=== PATIENT | male | born 1950 ===

== ENCOUNTER 2017-03-22 16:28 | Inpatient (IN) | payer MEDICARE, OTHER ==
[2017-03-22 16:32] VITALS: BMI 29.5
--- NOTE | 2017-03-22 17:13 | ED PDOC ---
Arrival/HPI - General Historian: Patient - History of Present Illness Time/Duration: Other (8 days) Symptom Course: Intermittent Context: Home <Luis Morgan - Last Filed: 03/22/17 19:00> <Srinivas Dhaliwal - Last Filed: 03/22/17 20:08> - General Chief Complaint: Dizziness/Lightheaded Time Seen by Provider: 03/22/17 16:32 - History of Present Illness Narrative History of Present Illness (Text): 03/22/17 17:00 This 66 yo male with pmh SC, s/p CABG, presents to this ED c/o intermittent dizziness, blurred vision, nausea x 8 days. Patient stated he feels he is going to "pass out". Patient admits urinary frequency. Patient denies sob, cp , abdominal pain, hematuria, rectal bleeding, recent travel, leg swelling, calf pain, or abnormal gait. (Luis Morgan) Past Medical History - Provider Review Nursing Documentation Reviewed: Yes - Infectious Disease Hx of Infectious Diseases: None - Tetanus Immunization Tetanus Immunization: Unknown - Cardiac Hx Cardiac Disorders: Yes Hx SC: Yes Hx Hypertension: Yes Other/Comment: CABG - Pulmonary Hx Respiratory Disorders: No - Neurological Hx Neurological Disorder: No - HEENT Hx HEENT Disorder: No - Renal Hx Renal Disorder: No - Endocrine/Metabolic Hx Endocrine Disorders: No - Hematological/Oncological Hx Blood Transfusions: No Hx Blood Transfusion Reaction: No - Integumentary Hx Dermatological Disorder: No - Musculoskeletal/Rheumatological Hx Musculoskeletal Disorders: No Hx Falls: No - Gastrointestinal Hx Gastrointestinal Disorders: No - Genitourinary/Gynecological Hx Genitourinary Disorders: No - Psychiatric Hx Psychophysiologic Disorder: No Hx Depression: No Hx Emotional Abuse: No Hx Physical Abuse: No Hx Substance Use: No - Surgical History Hx Cardiac Catheterization: Yes Hx Open Heart Surgery: Yes - Anesthesia Hx Anesthesia: Yes Hx Anesthesia Reactions: No Hx Malignant Hyperthermia: No - Suicidal Assessment Feels Threatened In Home Enviroment: No <Luis Morgan - Last Filed: 03/22/17 19:00> Family/Social History - Physician Review Nursing Documentation Reviewed: Yes Family/Social History: Other (non-contributory) Smoking Status: Current Some Days Smoker Hx Alcohol Use: No Hx Substance Use: No <Luis Morgan - Last Filed: 03/22/17 19:00> Allergies/Home Meds <Luis Morgan - Last Filed: 03/22/17 19:00> <Srinivas Dhaliwal - Last Filed: 03/22/17 20:08> Allergies/Adverse Reactions: Allergies No Known Allergies Allergy (Verified 03/22/17 16:32) Home Medications: Home Meds Medication Instructions Recorded Confirmed Metoprolol Succinate 25 mg PO BID 10/23/12 03/22/17 Lovastatin 40 mg PO DAILY 11/30/13 03/22/17 Aspirin [Adult Low Dose Aspirin EC] 1 tab PO DAILY 03/22/17 03/22/17 Nitroglycerin [Nitrostat SL Tab] 1 tab PO Q15MIN PRN 03/22/17 03/22/17 Sevelamer [Renagel] 0 mg PO DAILY 03/22/17 03/22/17 Review of Systems - Review of Systems Constitutional: Normal. absent: Fatigue, Weight Change, Fevers Eyes: Other (blurred vision) ENT: Normal. absent: Sore Throat, Rhinorrhea Respiratory: Normal. absent: SOB, Cough Cardiovascular: Syncope. absent: Chest Pain, Palpitations, Edema, Calf Pain, BRYAN, Orthopnea Gastrointestinal: Nausea. absent: Abdominal Pain, Constipation, Diarrhea, Vomiting Genitourinary Male: Frequency. absent: Dysuria, Hematuria Musculoskeletal: Normal. absent: Back Pain, Neck Pain Skin: Normal. absent: Rash Neurological: Dizziness. absent: Headache, Focal Weakness, Gait Changes, Speech Changes, Facial Droop, Disequilibrium, Seizure Endocrine: Normal Hemo/Lymphatic: Normal Psychiatric: Normal <Luis Morgan P - Last Filed: 03/22/17 19:00> Physical Exam Temperature: Afebrile Blood Pressure: Hypertensive Pulse: Bradycardic Respiratory Rate: Normal Appearance: Positive for: Well-Appearing, Non-Toxic, Comfortable Pain Distress: None Mental Status: Positive for: Alert and Oriented X 3 - Systems Exam Head: Present: Atraumatic, Normocephalic Pupils: Present: PERRL Extroacular Muscles: Present: EOMI Conjunctiva: Present: Normal Mouth: Present: Moist Mucous Membranes Neck: Present: Normal Range of Motion Respiratory/Chest: Present: Good Air Exchange, Decreased Breath Sounds, Rhonchi (mild LLL rhonchi). No: Respiratory Distress, Accessory Muscle Use, Wheezes, Rales, Retracting, Tachypneic, Tender to Palpation Cardiovascular: Present: Regular Rate and Rhythm, Normal S1, S2. No: Murmurs Abdomen: Present: Normal Bowel Sounds. No: Tenderness, Distention, Peritoneal Signs Back: Present: Normal Inspection. No: CVA Tenderness Upper Extremity: Present: Normal Inspection, Normal ROM, NORMAL PULSES, Neurovascularly Intact, Capillary Refill < 2s. No: Cyanosis, Edema Lower Extremity: Present: Normal Inspection, NORMAL PULSES, Normal ROM, Neurovascularly Intact, Capillary Refill < 2 s. No: Edema, CALF TENDERNESS, Vonda's Sign, Tenderness, Swelling, Erythema, Temperature Abnormalties Neurological: Present: GCS=15, CN II-XII Intact, Speech Normal, Motor Func Grossly Intact, Normal Sensory Function, Normal Cerebellar Funct, Gait Normal, Memory Normal Skin: Present: Warm, Dry, Normal Color. No: Rashes Psychiatric: Present: Alert, Oriented x 3, Normal Insight, Normal Concentration <Luis Morgan P - Last Filed: 03/22/17 19:00> Medical Decision Making Re-evaluation Time: 19:01 Reassessment Condition: Re-examined, Improving,but remains with symptoms - Lab Interpretations I have reviewed the lab results: Yes Interpretation: Abnormal lab values (elevated BNP) - EKG Interpretation Interpreted by ED Physician: Yes (Sinus Bradicardia at 51bpm. Normal interval) Type: 12 lead EKG Comparison: No previous EKG avail. <Luis Morgan - Last Filed: 03/22/17 19:00> <Srinivas Dhaliwal - Last Filed: 03/22/17 20:08> ED Course and Treatment: 03/22/17 19:[address] Vandana Vasquez regarding patient c/o near syncope x 8 days, intermittent. He agrees with plan for admission, to order consult for Dr. Nix, and Dr. Connolly (Luis Morgan) - Lab Interpretations Lab Results: 03/22/17 17:20 03/22/17 17:20 Lab Results 03/22/17 19:27: Urine Color Yellow, Urine Appearance Clear, Urine pH 6.0, Ur Specific [place] 1.015, Urine Protein Negative, Urine Glucose (UA) Negative, Urine Ketones Negative, Urine Blood Negative, Urine Nitrate Negative, Urine Bilirubin Negative, Urine Urobilinogen 0.2, Ur Leukocyte Esterase Negative 03/22/17 17:20: Sodium 140, Chloride 100, Potassium 4.6, Carbon Dioxide 28, Anion Gap 17, BUN 19, Creatinine 1.0, Est GFR ( Amer) > 60, Est GFR (Non- Af Amer) > 60, Random Glucose 98, Calcium 9.8, Total Bilirubin 0.4, AST 45, ALT 52, Alkaline Phosphatase 77, Lactate Dehydrogenase 499, Total Creatine Kinase 268 H, CK-MB (CK-2) 2.8, CK-MB (CK-2) % Cancelled, Troponin I < 0.01, NT-Pro-B Natriuret Pep 759 H, Total Protein 7.5, Albumin 4.5, Globulin 3.0, Albumin/ Globulin Ratio 1.5 03/22/17 17:20: pO2 36, VBG pH 7.35, VBG pCO2 54.0, VBG HCO3 29.8 H, VBG Total CO2 31.5 H, VBG O2 Sat (Calc) 74.1 H, VBG Base Excess 2.9 H, VBG Potassium 4.6, Sodium 137.0, Chloride 102.0, Glucose 102, Lactate 1.0, FiO2 21.0, Venous Blood Potassium 4.6 03/22/17 17:20: PT 11.4, INR 1.06, APTT 28.4 03/22/17 17:20: WBC 7.4, RBC 4.23, Hgb 12.9 L, Hct 37.8 L, MCV 89.4, MCH 30.5, MCHC 34.1, RDW 14.5, Plt Count 272, MPV 9.2, Gran % 53.9, Lymph % (Auto) 32.5, [place] % (Auto) 9.7 H, Eos % (Auto) 3.5, Baso % (Auto) 0.4, Gran # 3.96, Lymph # 2.4, [place] # 0.7 H, Eos # 0.3, Baso # 0.03 - RAD Interpretation Narrative RAD Interpretations (Text): 03/22/17 18:48 Accession No. : [id number] Patient Name / ID : PORTER CONNOR / [id number] Exam Date : 03/22/2017 17:25:04 ( Approved ) Study Comment : Sex / Age : M / 66Y Creator : Mireya Oliveira MD Dictator : Distribution Engineer : Bead Wrapper : Mireya Oliveira MD Approver2 : Report Date : 03/22/2017 17:43:38 My Comment : PROCEDURE: CT HEAD WITHOUT CONTRAST. HISTORY: dizziness COMPARISON: None available. TECHNIQUE: Axial computed tomography images were obtained through the head/brain without intravenous contrast. Radiation dose: Total exam DLP = 725.84 mGy-cm. This CT exam was performed using one or more of the following dose reduction techniques: Automated exposure control, adjustment of the mA and/or kV according to patient size, and/or use of iterative reconstruction technique. FINDINGS: HEMORRHAGE: No intracranial hemorrhage. BRAIN: No mass effect or edema. Intracranial atherosclerotic calcifications. No atrophy or chronic microvascular ischemic changes.Please note that MRI with diffusion imaging is more sensitive in the detection of acute ischemic event. VENTRICLES: No hydrocephalus. CALVARIUM: Unremarkable. PARANASAL SINUSES: Unremarkable as visualized. No significant inflammatory changes. MASTOID AIR CELLS: Unremarkable as visualized. No inflammatory changes. OTHER FINDINGS: None. IMPRESSION: No acute intracranial pathology identified. 03/22/17 18:48 CXR: NAD (Luis Morgan) Radiology Orders: 03/22/17 17:06 CHEST PORTABLE [RAD] Stat 03/22/17 17:16 HEAD W/O CONTRAST [CT] Stat 03/22/17 19:01 BRAIN WITHOUT CONTRAST [MRI] Urgent 03/22/17 19:03 CAROTID & VERTEBRAL DUPLEX [US] Urgent - Medication Orders Current Medication Orders: Aspirin (Ecotrin) 81 mg PO DAILY MIHIR Atorvastatin Calcium (Lipitor) 40 mg PO DIN MIHIR Furosemide (Lasix) 20 mg IVP DAILY MIHIR Sodium Chloride (Sodium Chloride 0.45%) 1,000 mls @ 30 mls/hr IV .Q24H MIHIR Metoprolol Succinate (Toprol Xl) 25 mg PO BID MIHIR Sevelamer HCl (Renagel) 400 mg PO DAILY MIHIR - PA / RESEARCH PHLEBOTOMIST / Resident Statement MD/DO has reviewed & agrees with the documentation as recorded. <Srinivas Dhaliwal - Last Filed: 03/22/17 20:08> Disposition/Present on Arrival - Present on Arrival Any Indicators Present on Arrival: No History of DVT/PE: No History of Uncontrolled Diabetes: No Urinary Catheter: No History of Decub. Ulcer: No History Surgical Site Infection Following: None - Disposition Have Diagnosis and Disposition been Completed?: Yes Disposition Time: 19:02 Patient Plan: Admission, Telemetry <Luis Morgan - Last Filed: 03/22/17 19:00> <Srinivas Dhaliwal - Last Filed: 03/22/17 20:08> - Disposition Diagnosis: Near syncope, Dizziness, Elevated brain natriuretic peptide (BNP) level Disposition: HOSPITALIZED Condition: STABLE Forms: [employer] Search ([place])
[2017-03-22 17:43] LABS: BASO # 0.03 K/mm3 (0.0-2.0); BASO % 0.4 % (0.0-3.0); EOS # 0.3 (0.0-0.7); EOS % 3.5 % (1.5-5.0); GRAN # 3.96 (1.4-6.5); GRAN % 53.9 % (50.0-68.0); HEMATOCRIT 37.8 % (42.0-52.0); LYMPH # 2.4 (1.2-3.4); LYMPH % 32.5 % (22.0-35.0); MEAN CELL VOLUME 89.4 fl (80.0-105.0); MEAN CORPUSCULAR HEMOGLOBIN 30.5 pg (25.0-35.0); MEAN CORPUSCULAR HGB CONC 34.1 g/dl (31.0-37.0); MEAN PLATELET VOLUME 9.2 fl (7.0-11.0); MONO # 0.7 (0.1-0.6); MONO % 9.7 % (1.0-6.0); RED CELL DISTRIBUTION WIDTH 14.5 % (11.5-14.5); WHITE BLOOD COUNT 7.4 10^3/ul (4.5-11.0)
--- NOTE | 2017-03-22 17:45 | CT ---
PROCEDURE: CT HEAD WITHOUT CONTRAST. HISTORY: dizziness COMPARISON: None available. TECHNIQUE: Axial computed tomography images were obtained through the head/brain without intravenous contrast. Radiation dose: Total exam DLP = 725.84 mGy-cm. This CT exam was performed using one or more of the following dose reduction techniques: Automated exposure control, adjustment of the mA and/or kV according to patient size, and/or use of iterative reconstruction technique. FINDINGS: HEMORRHAGE: No intracranial hemorrhage. BRAIN: No mass effect or edema. Intracranial atherosclerotic calcifications. No atrophy or chronic microvascular ischemic changes.Please note that MRI with diffusion imaging is more sensitive in the detection of acute ischemic event. VENTRICLES: No hydrocephalus. CALVARIUM: Unremarkable. PARANASAL SINUSES: Unremarkable as visualized. No significant inflammatory changes. MASTOID AIR CELLS: Unremarkable as visualized. No inflammatory changes. OTHER FINDINGS: None. IMPRESSION: No acute intracranial pathology identified.
[2017-03-22 17:54] LABS: INR 1.06 (0.93-1.08); PARTIAL THROMBOPLASTIN TIME 28.4 Seconds (23.7-30.8)
[2017-03-22 17:58] LABS: VENOUS BLOOD GAS BASE EXCESS 2.9 mmol/L (0.0-2.0); VENOUS BLOOD PH 7.35 (7.32-7.43)
[2017-03-22 18:05] LABS: ALB/GLOB RATIO 1.5 (1.1-1.8); ALKALINE PHOSPHATASE 77 U/L (38-133); ALT/SGPT 52 U/L (7-56); AST/SGOT 45 U/L (15-59); BILIRUBIN,TOTAL 0.4 mg/dL (0.2-1.3); BLOOD UREA NITROGEN 19 mg/dL (7-21); CALCIUM 9.8 mg/dL (8.4-10.5); CARBON DIOXIDE 28 mmol/L (21-33); CHLORIDE 100 mmol/L (98-107); GFR AFRICAN-AMERICAN > 60; GLUCOSE,RANDOM 98 mg/dL (70-110); POTASSIUM 4.6 mmol/L (3.6-5.0); SODIUM 140 mmol/L (132-148); TOTAL PROTEIN 7.5 g/dL (5.8-8.3)
[2017-03-22 18:20] LABS: TROPONIN I < 0.01 ng/mL
[2017-03-22 19:38] LABS: URINE BILIRUBIN NEGATIVE (NEGATIVE); URINE BLOOD NEGATIVE (NEGATIVE); URINE GLUCOSE (UA) NEGATIVE (NEGATIVE); URINE KETONE NEGATIVE (NEGATIVE); URINE LEUKOCYTE ESTERASE NEGATIVE Leu/uL (NEGATIVE); URINE PROTEIN NEGATIVE mg/dL (<30 mg/dL); URINE UROBILINOGEN 0.2 E.U./dL (<1 E.U./dL)
[2017-03-22 19:39] LABS: URINE APPEARANCE CLEAR (CLEAR); URINE COLOR YELLOW (YELLOW)
--- NOTE | 2017-03-22 20:54 | MRI ---
EXAM: MR Head Without Intravenous Contrast EXAM DATE/TIME: 03/22/2017 7:01 PM CLINICAL HISTORY: The patient age is 66 years old and is male; Signs and symptoms; Dizziness; Patient HX: Dizziness. Limited study. Patient wants out of the magnet. Nurse francois was informed. Moses gupta Additional info: Dizzy Facility exam id and description: Mri br s brain without contrast TECHNIQUE: Magnetic resonance images of the head/brain without intravenous contrast in multiple planes. COMPARISON: CT - HEAD W/O CONTRAST 03/22/2017 5:25:04 PM FINDINGS: Limitations: This study is limited by the absence of a sagittal T1-weighted sequence. Brain: There is no restricted diffusion within the brain to suggest acute ischemic change. There are scattered foci of high FLAIR signal intensity within the cerebral white matter. There is no mass effect or restricted diffusion associated with these foci. In a patient this age, this likely represents chronic small vessel ischemic disease. A few tiny T2 hyperintense chronic lacunar infarcts are visualized within the cerebellar lobes. There is mild increased T2 signal intensity within the jean, which is nonspecific, but suggestive of chronic small vessel ischemic disease. There is mild prominence of the ventricles and sulci, compatible with atrophy. No cerebral edema. Ventricles: See above. Bones/joints: No acute abnormality. Sinuses: There is mild mucosal thickening of a left anterior ethmoid air cell. Mild mucosal thickening is visualized of the left maxillary sinus. No acute sinusitis. Mastoid air cells: No mastoid effusion. Orbits: No acute abnormality, as visualized. IMPRESSION: 1. There is no restricted diffusion within the brain to suggest acute ischemic change. 2. There are scattered foci of high FLAIR signal intensity within the cerebral white matter. In a patient this age, this likely represents chronic small vessel ischemic disease. 3. A few tiny chronic lacunar infarcts are visualized within the cerebellar lobes. There is mild increased T2 signal intensity within the jean, which is nonspecific, but suggestive of chronic small vessel ischemic disease. 4. Mild atrophy. 5. Paranasal sinus disease is noted above.
[2017-03-22] MEDS: Sodium Chloride 0.45% 1,000 ML IV SCH (21:50)
--- NOTE | 2017-03-23 04:57 | CP.PCM.PN ---
Subjective - Date & Time of Evaluation Date of Evaluation: 03/23/17 Time of Evaluation: 04:55 - Subjective Subjective: Patient was seen at bedside. He came i with complaint of dizziness. Nurse calls because his heart rate was in the 50's and it dropped down to 50's . Is asymptomatic. Has no complaints now. Medical record was reviewed. This 66 year old male was admitted with dizziness ,lightheadedness, intermittent blurry vision, nausea, Has PMH of UT, HTN, chronic bypass graft, heart surgery, cardiac catheterization. Objective - Vital Signs/Intake and Output Vital Signs (last 24 hours): Temp Pulse Resp BP Pulse Ox 98.7 F 61 18 127/74 98 03/22/17 22:44 03/22/17 22:44 03/22/17 22:44 03/22/17 22:44 03/22/17 21:14 - Medications Medications: Current Medications Aspirin (Ecotrin) 81 mg PO DAILY MIHIR Atorvastatin Calcium (Lipitor) 40 mg PO DIN MIHIR Furosemide (Lasix) 20 mg IVP DAILY [facility] Sodium Chloride (Sodium Chloride 0.45%) 1,000 mls @ 30 mls/hr IV .Q24H MIHIR Last Admin: 03/22/17 21:50 Dose: 30 mls/hr Metoprolol Succinate (Toprol Xl) 25 mg PO BID MIHIR Sevelamer HCl (Renagel) 400 mg PO DAILY [facility] - Labs Labs: PT 11.4 Seconds (9.9-11.8) 03/22/17 17:20 INR 1.06 (0.93-1.08) 03/22/17 17:20 APTT 28.4 Seconds (23.7-30.8) 03/22/17 17:20 - Constitutional Appears: Well, No Acute Distress - Head Exam Head Exam: ATRAUMATIC, NORMAL INSPECTION, NORMOCEPHALIC - Eye Exam Eye Exam: Normal appearance - ENT Exam ENT Exam: Normal External Ear Exam - Neck Exam Neck Exam: Normal Inspection - Respiratory Exam Respiratory Exam: NORMAL BREATHING PATTERN - Cardiovascular Exam Cardiovascular Exam: Bradycardia - GI/Abdominal Exam GI & Abdominal Exam: absent: Distended - Rectal Exam Rectal Exam: Deferred - Exam Additional comments: Deferred. - Extremities Exam Extremities Exam: Normal Inspection - Back Exam Back Exam: NORMAL INSPECTION - Neurological Exam Neurological Exam: Alert, Oriented x3 - Psychiatric Exam Psychiatric exam: Normal Affect, Normal Mood - Skin Skin Exam: Normal Color Assessment and Plan - Assessment and Plan (Free Text) Assessment: Sinus bradycardia. History UT. CAD. HTN. Smoker. Plan: Observation. Continue present management.
[2017-03-23 06:41] LABS: HEMATOCRIT 37.9 % (42.0-52.0); MEAN CELL VOLUME 89.6 fl (80.0-105.0); MEAN CORPUSCULAR HEMOGLOBIN 29.8 pg (25.0-35.0); MEAN CORPUSCULAR HGB CONC 33.2 g/dl (31.0-37.0); RED CELL DISTRIBUTION WIDTH 14.9 % (11.5-14.5); WHITE BLOOD COUNT 6.1 10^3/ul (4.5-11.0)
[2017-03-23 07:02] LABS: ALB/GLOB RATIO 1.4 (1.1-1.8); ALKALINE PHOSPHATASE 68 U/L (38-133); ALT/SGPT 45 U/L (7-56); AST/SGOT 37 U/L (15-59); BILIRUBIN,TOTAL 0.4 mg/dL (0.2-1.3); BLOOD UREA NITROGEN 16 mg/dL (7-21); CALCIUM 9.4 mg/dL (8.4-10.5); CARBON DIOXIDE 30 mmol/L (21-33); CHLORIDE 101 mmol/L (98-107); GFR AFRICAN-AMERICAN > 60; GLUCOSE,RANDOM 101 mg/dL (70-110); POTASSIUM 4.3 mmol/L (3.6-5.0); SODIUM 138 mmol/L (132-148); TOTAL PROTEIN 6.7 g/dL (5.8-8.3)
--- NOTE | 2017-03-23 08:34 | RAD ---
HISTORY: dizziness COMPARISON: 11/30/2013 FINDINGS: LUNGS: No active pulmonary disease. PLEURA: No significant pleural effusion identified, no pneumothorax apparent. CARDIOVASCULAR: Status post CABG. OSSEOUS STRUCTURES: No significant abnormalities. VISUALIZED UPPER ABDOMEN: Normal. OTHER FINDINGS: None. IMPRESSION: No active disease.
--- NOTE | 2017-03-23 09:28 | US ---
PROCEDURE: Bilateral carotid artery duplex ultrasound HISTORY: Carotid stenosis dizziness. PHYSICIAN(S): Martín Coleman MD. TECHNIQUE: Duplex sonography and color-flow Doppler were used to evaluate the carotid bifurcations and limited segments of the vertebral arteries bilaterally. FINDINGS: There is mild smooth heterogeneous plaque noted at the carotid bifurcations bilaterally. The peak systolic velocity in the proximal right internal carotid artery is 74 cm/sec. This corresponds to a 20 to 39% proximal right ICA stenosis. Normal systolic velocities are noted in the proximal right external carotid artery. There is antegrade flow in the right vertebral artery. The peak systolic velocity in the proximal left internal carotid artery is 63 cm/sec. This corresponds to a 20 to 39% proximal left ICA stenosis. Normal systolic velocities are noted in the proximal left external carotid artery. There is antegrade flow in the left vertebral artery. IMPRESSION: 1. Bilateral 20-39% proximal ICA stenoses. 2. Antegrade flow in both vertebral arteries.
[2017-03-23] MEDS: Metoprolol Succinate 25 mg XL Tab PO SCH ×2 (09:41→17:18)
--- NOTE | 2017-03-23 09:48 | CARD ---
APPROVED REPORT EKG Measurement Heart [id number] GA [id number] <Conclusion> Sinus bradycardia Otherwise normal ECG
--- NOTE | 2017-03-23 11:09 | HP ---
HISTORY OF PRESENT ILLNESS: I was called down to the emergency room to admit Martín Valero. He is a 66-year-old man who presents with dizziness, lightheadedness, it has been intermittent blurred vision, nausea for 8 days, it got worse that he almost passed out, but he did not. He has had urinary frequency. No chest pain, no abdominal pain, no bloody urine or rectal bleeding. It has been going on for 8 days, intermittent, got worse today almost passed out. PAST MEDICAL HISTORY: He has a history of myocardial infarction, hypertension, chronic bypass graft, he had open heart surgery, cardiac catheterization. SOCIAL HISTORY: He does smoke cigarettes. He used to do drugs, no more. ALLERGIES: NO KNOWN DRUG ALLERGIES. MEDICATIONS: He is on metoprolol, lovastatin for high cholesterol, aspirin, nitroglycerin, and Renagel. REVIEW OF SYSTEMS: No acute vision changes or hearing changes. No fatigue. There was blurred vision earlier. No sore throat, no rhinorrhea, no shortness of breath, no cough. There was syncope, no chest pain or palpitations. No edema, no calf pain. No dyspnea on exertion or orthopnea. No abdominal pain or constipation, diarrhea or vomiting. There was increase in frequency of urination, no problems urinating. No back pain. No skin rashes or ulcers. There is dizziness, almost passing out. No headache or focal weakness, No gait changes or speech changes. No facial droop. No seizures. No sweating. No anxiety or depression. PHYSICAL EXAMINATION: VITAL SIGNS: Temperature 98.1, pulse 58, respiratory rate 18, blood pressure 160/87, and O2 sat is 95% on room air. HEENT: Head is atraumatic, normocephalic. He is well appearing nontoxic, comfortable at this time. His mouth is moist. NECK: Supple. HEART: Regular rate, S1, S2 is normal. LUNGS: Have decreased breath sounds, but clear to auscultation bilaterally. ABDOMEN: Soft, nontender, positive bowel sounds. EXTREMITIES: He had trace edema of his extremities. His GCS is 15 at this time. CENTRAL NERVOUS SYSTEM: Intact. Cranial nerves II through XII grossly intact. Speech is normal. Tongue is midline. He can moves his eyes in all directions. He could raise arms over his head. He could smile to frown. He is alert and oriented x3. He almost passed out. He had multiple tests. LABORATORY DATA: He has sodium 140, potassium 4.6, BUN 19, creatinine 1. GFR is greater than 60, sugar is 98, calcium 9.8, total bilirubin is 0.4. AST is 45, ALT is 52, alkaline phosphatase is 77, troponin is less than 0.01. BNP is 759, total protein 7.5, albumin is 4.5. INR is 1.06, white count is 7.4, hemoglobin 12.9, hematocrit 37.8, platelets 272. CAT scan of the head shows no acute intracranial pathology. He will have a consult with Cardiology and Neurology with an MRI of the brain. He have a ultrasound of the carotid. He will be on aspirin low dose, IV fluids of 30 mL an hour, Lasix 20 mg IV, lovastatin, metoprolol, Renagel. Diet. He will be on observation. Hopefully, he will do well. We will get him up tomorrow, we will see how he does overnight. He is starting to improve. He is here for near syncope. We will check his labs tomorrow. Ezra Vasquez DO
--- NOTE | 2017-03-23 14:58 | PN ---
DATE: SUBJECTIVE: I saw him resting comfortably in bed. He tells me he is feeling better than yesterday. The lightheadedness and dizziness has gone way. He is comfortable at this time. He is hungry. MEDICATIONS: He is on Ecotrin, Lasix, Lipitor, Renagel, IV fluids, and Toprol. PHYSICAL EXAMINATION: VITAL SIGNS: Are 98.7 temperature, 61 pulse, 124/74 blood pressure, 18 respiratory rate, and 90% O2 saturation on room air. HEENT: Head is atraumatic, normocephalic. Throat is moist. NECK: Supple. HEART: Regular rate. LUNGS: Decreased breath sounds, but clear to auscultation. ABDOMEN: Soft. EXTREMITIES: No edema. LABORATORY DATA: He has got a 6.1 white count,12.6 hemoglobin, 37.9 hematocrit, and 241 platelets. INR is 1.06. He has 138 sodium, potassium 4.3, BUN is 16, creatinine 0.9, GFR is greater than 60, sugar is 101, calcium is 9.4. Total bilirubin is 0.4, AST is 37, ALT is 45, alkaline phosphatase 68. Troponin is less than 0.01. Total protein is 6.7, albumin is 3.9, globulin is 2.8. Urine is negative. Toxicology was completely negative. The brain MRI showed old stuff, nothing acute. Carotid artery ultrasound is pending. ASSESSMENT AND PLAN: We are waiting for Neuro and Cardiology okay from them, I will try and discharge him and make him in observation. He is here for near syncope. Ezra Vasquez DO [id number]
--- NOTE | 2017-03-23 16:38 | CP.PCM.CON ---
<Ron Bliss - Last Filed: 03/23/17 17:44> History of Present Illness - History of Present Illness History of Present Illness: Neurology consult note for Dr. Nix Service Consulted for: syncope HPI: This is a 66 yo M with PMH of [place], CAD s/p stenting and CABG (2013) , HTN, HLD, prior alcohol and coccaine abuse, and active tobacco use who presented to [facility] overnight with initial complaint of dizziness, blurred vision, and nausea x8 days with intermittent episodes of near syncope. However, on interview today, patient described his symptoms causing presentation as shortness of breath, chest tightness, weakness, and dizziness specifically on exertion. Patient is noted in prior charting to have left AMA from [facility] after cardiac event prior to cardiac cath in 2012. He subsequently underwent cardiac cath and CABG at another facility (location and date unclear, possibly [facility]). He reports compliance with medication regimen since that time, and reports following regularly with a non-[facility] Blunger Machine Operator (Dr. Milligan). For this admission, patient reports that he gets shortness of breath and dizziness with any exertion, and frequently gets chest tightness and occasionally pain. Denies any syncope, but reports 2-3 episodes of near-syncope , all relieved with rest. Frequent nausea and sensation of needing to vomit, but no actual emesis, and is still tolerating PO intake. Also initially describes inability to move right knee, but later clarifies that he can move the leg at rest while sitting, symptom is more stiffness than paresthesis, and retains full sensation at all times. Denies fevers/chills, emesis, fevers/ chills, focal weakness, paresthesia, diarrhea/constipation, or vision changes. All remaining ROS in 12-point system review negative. Of note, in the ED and overnight, patient experienced bradycardia of 40's-50's; primarily 40's overnight. He has been in the high 50's-60s throughout today. PMH: As above PSH: CABG, Cardiac Stenting FHx: denies SHx: admits to active tobacco (down to 1/2 ppd, previously 1+ ppd > 30 yrs), admits to alcohol (previously reported alcohol abuse, reports currently drinks 1 -2 beers per day), denies illicits (previously reported to use cocaine). PMD: Dr. Singh Blunger Machine Operator: Dr. Milligan Review of Systems - Review of Systems All systems: reviewed and no additional remarkable complaints except (as per HPI ) Past Patient History - Infectious Disease Hx of Infectious Diseases: None - Tetanus Immunizations Tetanus Immunization: Unknown - Past Social History Smoking Status: Current Some Days Smoker - CARDIAC Hx Cardiac Disorders: Yes - PULMONARY Hx Respiratory Disorders: No - NEUROLOGICAL Hx Neurological Disorder: No - HEENT Hx HEENT Problems: No - RENAL Hx Chronic Kidney Disease: No - ENDOCRINE/METABOLIC Hx Endocrine Disorders: No - HEMATOLOGICAL/ONCOLOGICAL Hx Blood Transfusions: No Hx Blood Transfusion Reaction: No - INTEGUMENTARY Hx Dermatological Problems: No - MUSCULOSKELETAL/RHEUMATOLOGICAL Hx Falls: No - GASTROINTESTINAL Hx Gastrointestinal Disorders: No - GENITOURINARY/GYNECOLOGICAL Hx Genitourinary Disorders: No - PSYCHIATRIC Hx Substance Use: No - SURGICAL HISTORY Hx Cardiac Catheterization: Yes Hx Open Heart Surgery: Yes (CABG) - ANESTHESIA Hx Anesthesia: Yes Hx Anesthesia Reactions: No Hx Malignant Hyperthermia: No Meds Allergies/Adverse Reactions: Allergies Allergy/AdvReac Type Severity Reaction Status Date / Time No Known Allergies Allergy Verified 03/22/17 16:32 - Medications Medications: Current Medications Aspirin (Ecotrin) 81 mg PO DAILY [facility] Last Admin: 03/23/17 09:41 Dose: 81 mg Atorvastatin Calcium (Lipitor) 40 mg PO DIN [facility] Clopidogrel Bisulfate (Plavix) 75 mg PO DAILY [facility] Sodium Chloride (Sodium Chloride 0.45%) 1,000 mls @ 30 mls/hr IV .Q24H [facility] Last Admin: 03/22/17 21:50 Dose: 30 mls/hr Metoprolol Succinate (Toprol Xl) 25 mg PO BID [facility] Last Admin: 03/23/17 09:41 Dose: 25 mg Sevelamer HCl (Renagel) 400 mg PO DAILY [facility] Last Admin: 03/23/17 09:41 Dose: 400 mg Physical Exam - Constitutional Appears: Non-toxic, No Acute Distress - Head Exam Head Exam: ATRAUMATIC, NORMAL INSPECTION, NORMOCEPHALIC - Eye Exam Eye Exam: EOMI, Normal appearance, PERRL. absent: Conjunctival injection, Scleral icterus Pupil Exam: NORMAL ACCOMODATION, PERRL. absent: Fixed, Irregular, Unequal - ENT Exam ENT Exam: Mucous Membranes Moist. absent: Mucous Membranes Dry - Neck Exam Neck exam: Positive for: Full Rom, Normal Inspection - Respiratory Exam Respiratory Exam: Decreased Breath Sounds (mild-moderate decreased breath sounds in all kahn, but otherwise clear to auscultation), Clear to Auscultation Bilateral, Prolonged Expiratory Phase, NORMAL BREATHING PATTERN. absent: Accessory Muscle Use, Chest Wall Tenderness, Rales, Rhonchi, Wheezes - Cardiovascular Exam Cardiovascular Exam: Bradycardia, REGULAR RHYTHM, +S1, +S2. absent: Tachycardia , Irregular Rhythm, JVD, RRR, +S4 - GI/Abdominal Exam GI & Abdominal Exam: Normal Bowel Sounds, Soft. absent: Diminished Bowel Sounds , Distended, Firm, Hyperactive Bowel Sounds, Hypoactive Bowel Sounds, Rigid, Tenderness - Extremities Exam Extremities exam: Positive for: normal inspection. Negative for: calf tenderness, pedal edema, tenderness - Back Exam Back exam: absent: CVA tenderness (L), CVA tenderness (R) - Neurological Exam Neurological exam: Alert, CN II-XII Intact, Oriented x3 Additional comments: Motor and sensory grossly intact and equal in all extremities Full active and passive ROM in R knee 5/5 bilateral UE, LE, and curtain supervisor strength - Psychiatric Exam Psychiatric exam: Normal Affect, Normal Mood - Skin Skin Exam: Dry, Intact, Normal Color, Warm Results - Vital Signs Recent Vital Signs: Last Vital Signs Temp 97.8 F 03/23/17 08:24 Pulse 48 L 03/23/17 08:24 Resp 20 03/23/17 08:24 BP 124/72 03/23/17 09:41 Pulse Ox 98 03/23/17 08:24 - Labs Result Diagrams: 03/23/17 05:50 03/23/17 05:50 Labs: Laboratory Results - last 24 hr 03/22/17 03/22/17 03/23/17 19:27 21:40 05:50 WBC 6.1 RBC 4.23 Hgb 12.6 L Hct 37.9 L MCV 89.6 MCH 29.8 MCHC 33.2 RDW 14.9 H Plt Count 241 MPV 9.0 Sodium Potassium Chloride Carbon Dioxide Anion Gap BUN Creatinine Est GFR ( Amer) Est GFR (Non-Af Amer) Random Glucose Calcium Total Bilirubin AST ALT Alkaline Phosphatase Total Protein Albumin Globulin Albumin/Globulin Ratio Urine Color Yellow Urine Appearance Clear Urine pH 6.0 Ur Specific [place] 1.015 Urine Protein Negative Urine Glucose (UA) Negative Urine Ketones Negative Urine Blood Negative Urine Nitrate Negative Urine Bilirubin Negative Urine Urobilinogen 0.2 Ur Leukocyte Esterase Negative Urine Opiates Screen Negative Urine Methadone Screen Negative Ur Barbiturates Screen Negative Ur Phencyclidine Scrn Negative Ur Amphetamines Screen Negative U Benzodiazepines Scrn Negative U Oth Cocaine Metabols Negative U Cannabinoids Screen Negative 03/23/17 05:50 WBC RBC Hgb Hct MCV MCH MCHC RDW Plt Count MPV Sodium 138 Potassium 4.3 Chloride 101 Carbon Dioxide 30 Anion Gap 11 BUN 16 Creatinine 0.9 Est GFR ( Amer) > 60 Est GFR (Non-Af Amer) > 60 Random Glucose 101 Calcium 9.4 Total Bilirubin 0.4 AST 37 ALT 45 Alkaline Phosphatase 68 Total Protein 6.7 Albumin 3.9 Globulin 2.8 Albumin/Globulin Ratio 1.4 Urine Color Urine Appearance Urine pH Ur Specific [place] Urine Protein Urine Glucose (UA) Urine Ketones Urine Blood Urine Nitrate Urine Bilirubin Urine Urobilinogen Ur Leukocyte Esterase Urine Opiates Screen Urine Methadone Screen Ur Barbiturates Screen Ur Phencyclidine Scrn Ur Amphetamines Screen U Benzodiazepines Scrn U Oth Cocaine Metabols U Cannabinoids Screen Assessment & Plan - Assessment and Plan (Free Text) Assessment: This is a 66 yo M with PMH of [place], CAD s/p stenting and CABG (2013), HTN , HLD, prior alcohol and cocaine abuse, and active tobacco use with initial complaint of dizziness, blurred vision, and nausea x8 days with intermittent episodes of near syncope, but now instead reports hx of shortness of breath, chest tightness, weakness, and dizziness, specifically on exertion. Based on patient's extensive cardiac hx and symptoms specifically triggered/ exacerbated by exertion, his presentation is more likely cardiac in nature, rather than ventral/carotid in nature. Head CT and MRI brain are negative for acute pathology, and Carotid Duplex reports 20-39% stenosis bilaterally with ategrade flow in bilateral vertebral arteries. At rest, he is not dyspnic, has grossly intact motor and sensory, and equal and appropriate motor strength. Weakness and dizziness are likely 2/2 bradycardia in setting of underlying CAD and active tobacco abuse. 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 Shortness of breath and chest tightness on exertion more suggestive of anginal etiology. As per Cardiology, planning to take for Cardiac Cath tomorrow. Plan: 1) Tobacco/EtOH/Illicits avoidance 2) PT/OT 3) ASA 81mg/Plavix 75mg for stroke prevention, continue home lipitor (40mg PO daily); as per Cardio, Plavix loaded today pending cath tomorrow Patient seen, reviewed, and discussed with attending, Dr. Samuel Nix. Please reconsult if patient experiences any acute changes in condition. <Gilson Nix - Last Filed: 03/24/17 10:14> Meds - Medications Medications: Current Medications Aspirin (Ecotrin) 81 mg PO DAILY [facility] Last Admin: 03/24/17 09:21 Dose: Not Given Atorvastatin Calcium (Lipitor) 40 mg PO DIN [facility] Last Admin: 03/23/17 17:18 Dose: 40 mg Clopidogrel Bisulfate (Plavix) 75 mg PO DAILY [facility] Last Admin: 03/24/17 09:21 Dose: Not Given Sodium Chloride (Sodium Chloride 0.9%) 1,000 mls @ 100 mls/hr IV .Q10H [facility] Stop: 03/24/17 15:00 Last Admin: 03/24/17 09:18 Dose: 100 mls/hr Metoprolol Succinate (Toprol Xl) 25 mg PO BID [facility] Last Admin: 03/23/17 17:18 Dose: 25 mg Sevelamer HCl (Renagel) 400 mg PO DAILY [facility] Last Admin: 03/23/17 09:41 Dose: 400 mg Results - Vital Signs Recent Vital Signs: Last Vital Signs Temp 98.1 F 03/24/17 08:26 Pulse 59 L 03/24/17 08:26 Resp 19 03/24/17 08:26 BP 118/68 03/24/17 08:26 Pulse Ox 97 03/24/17 08:26 - Labs Result Diagrams: 03/23/17 05:50 03/23/17 05:50 Labs: Laboratory Results - last 24 hr 03/23/17 21:20 POC Glucose (mg/dL) 102 Attending/Attestation - Attestation I have personally seen and examined this patient.: Yes I have fully participated in the care of the patient.: Yes I have reviewed all pertinent clinical information: Yes
--- NOTE | 2017-03-23 16:54 | CON ---
DATE: 03/23/2017 HISTORY: The patient is a 66-year-old male, who presents with transient dizziness. His symptoms are now resolved. The patient's past medical history is notable for history of coronary bypass surgery. He was told from a catheterization done at [facility] that he has one bypass graft closed and he has a poor and he has a critical lesion in another vessel, which may require coronary bypass surgery in which the patient would be at high risk for PAST MEDICAL HISTORY: The patient's past medical history is notable for COPD with active smoking, claudication, hypertension, and hypercholesterolemia. No diabetes mellitus noted. SOCIAL HISTORY The patient still smokes. REVIEW OF SYSTEMS: A 14-point review of systems was reviewed. The patient does experience occasional chest pain and complains of right leg pain during exertion. PHYSICAL EXAMINATION: VITAL SIGNS: Blood pressure is 124/72, heart rate is in the 40s, sinus rhythm. NECK: Negative JVD. LUNGS: No rales noted. HEART: Reveal S1 and S2. EXTREMITIES: Without edema. LABORATORY DATA: EKG shows normal sinus rhythm with diffuse ST-T changes. Troponin is negative x1. The hemoglobin is 12.6. IMPRESSION 1. Transient dizziness. 2. Multivessel coronary artery disease. 3. History of coronary bypass surgery. 4. Ongoing angina. 5. Claudication. 6. History of hypertension. PLAN: I have discussed with the patient options of potential look and see whether his coronary blockages can be resolved with angioplasty instead of repeat coronary bypass surgery. Repeat coronary bypass surgery for him would be at increased risk due to his active smoking, COPD and history of previous bypass. The patient agrees. We will load with Plavix. The patient is for cardiac catheterization in the morning. Martín Connolly MD
[2017-03-23] MEDS: Sodium Chloride 0.45% 1,000 ML IV SCH (21:26)
[2017-03-24] MEDS ORDERED: Lidocaine 2% Inj (20ml) ONE (07:10)
[2017-03-24] MEDS ORDERED: Phenylephrine 10 mg/ml Inj ONE (07:28)
[2017-03-24] MEDS ORDERED: Midazolam 2 MG/2 ML VIAL ONE ×2 (07:40→07:56)
[2017-03-24] MEDS ORDERED: Iohexol 350mgl/ml 50 ML ONE (08:13)
[2017-03-24] MEDS ORDERED: Sodium Chloride 0.9% 1,000 ML IV SCH (09:00)
--- NOTE | 2017-03-24 10:51 | CARDCATH ---
PROCEDURE DATE: 03/24/2017 HISTORY: The patient is a 66-year-old male who presents with angina. The patient is status post coronary bypass surgery and has been told that he may need bypass surgery as he continues have chest pain. He continues to smoke and suffers from hypercholesterolemia. PROCEDURE: Left heart catheterization with coronary aortography and left ventriculogram with BELL angiogram, saphenous vein graft angiogram as well as PTCA and stent of the saphenous vein graft of the RCA. The right femoral artery was cannulated with a 6-Ethiopian sheath. There were no complications. The findings on catheterization revealed a left ventricle that was globally hypokinetic. Estimated ejection fraction was 35-40%. His coronary anatomy revealed left main artery that revealed diffuse atherosclerosis without critical lesions. The LAD was sub-totally occluded. The circumflex artery revealed a chronic occlusion in its proximal portion. The RCA was occluded in its proximal portion. The BELL to the LAD was found to be patent and provided good antegrade flow to the LAD. The staph vein graft to the RCA revealed 80% stenosis in its proximal portion to the RCA. There was no bypass graft to the circumflex artery noted. The patient was started on intravenous Angiomax on the fluoroscopic guide, the guiding catheter was placed in the ostium of the saphenous vein graft to the RCA. An 0.014 ATW wire was used to cross the critical lesion and saphenous vein graft. A 3.0 x 18 mm drug-eluting stent was placed and deployed at 14 atmospheres of pressure. Repeat coronary artery revealed an excellent result with no residual stenosis and HAJA III flow. Angio-Seal was used to close the femoral artery site. The patient time of tolerated the procedure well. In summary, the procedure was successful for PTCA and stent of a critically stenosed saphenous vein graft to the RCA with a drug-eluting stent. Cardiac catheterization reveals triple vessel CAD. a patent BELL to the LAD was noted. A critical lesion in the saphenous vein graft to the RCA was noted. A dilated cardiomyopathy with an EF of 35-40% was found. Given these findings, the patient will need to remain on aspirin and Plavix with Plavix for at least 1 year. I have discussed with the patient about the need to stop smoking. We will bring him back in one in 1 week for PTCA of a chronically occluded circumflex artery. Martín Connolly MD [facility] # [id number]
[2017-03-24] MEDS: Metoprolol Succinate 25 mg XL Tab PO SCH (10:58)
--- NOTE | 2017-03-24 11:26 | CARD ---
APPROVED REPORT EKG Measurement Heart [id number] <Conclusion> Marked sinus bradycardia with 1st degree AV block Cannot rule out Inferior infarct, age undetermined Abnormal ECG
--- NOTE | 2017-03-24 14:04 | PN ---
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 He had a stent placed for coronary artery disease. He will be kept overnight and if done well,we will be discharged tomorrow. MEDICATIONS: He is currently on Ecotrin, Lipitor, Plavix, Renagel, IV fluids, and metoprolol. PHYSICAL EXAMINATION VITAL SIGNS: 98.1 temp, 69 pulse, 118/68 blood pressure, 19 respiratory rate and 97% O2 sat on room air. HEENT: Head is atraumatic and normocephalic. HEART: Regular rate. LUNGS: Clear to auscultation. ABDOMEN: Soft. EXTREMITIES: No edema. LABORATORY DATA: He has a 6.1 white count, 12.6 hemoglobin, 37.9 hematocrit with a 241 platelets. He has a 138 sodium, potassium 4.3, BUN 16, creatinine 0.9, GFR is greater than 60, sugar is 102, calcium is 9.4. Total bili is 0.4, AST is 37, ALT is 45, alkaline phosphatase is 68. He has 6.7 total protein. Urine screen tox was negative. PLAN: We are discharging him tomorrow home, status post cath today. He will be eating later, he will eat 5 to 6 hours. I will follow up that. Ezra Vasquez DO
[2017-03-25 06:06] LABS: ALB/GLOB RATIO 1.4 (1.1-1.8); ALKALINE PHOSPHATASE 67 U/L (38-126); ALT/SGPT 51 U/L (7-56); AST/SGOT 36 U/L (17-59); BILIRUBIN,TOTAL 0.5 mg/dL (0.2-1.3); BLOOD UREA NITROGEN 13 mg/dL (7-21); CALCIUM 9.2 mg/dL (8.4-10.5); CARBON DIOXIDE 26 mmol/L (21-33); CHLORIDE 103 mmol/L (98-107); GFR AFRICAN-AMERICAN > 60; GLUCOSE,RANDOM 111 mg/dL (70-110); SODIUM 139 mmol/L (132-148); TOTAL PROTEIN 6.7 g/dL (5.8-8.3)
[2017-03-25 06:19] LABS: BASO # 0.02 K/mm3 (0.0-2.0); BASO % 0.3 % (0.0-3.0); EOS # 0.3 (0.0-0.7); GRAN # 3.55 (1.4-6.5); HEMATOCRIT 38.4 % (42.0-52.0); LYMPH # 2.3 (1.2-3.4); LYMPH % 34.2 % (22.0-35.0); MEAN CELL VOLUME 90.4 fl (80.0-105.0); MEAN CORPUSCULAR HEMOGLOBIN 29.9 pg (25.0-35.0); MEAN CORPUSCULAR HGB CONC 33.1 g/dl (31.0-37.0); MEAN PLATELET VOLUME 9.1 fl (7.0-11.0); MONO # 0.7 (0.1-0.6); MONO % 9.5 % (1.0-6.0); RED CELL DISTRIBUTION WIDTH 14.9 % (11.5-14.5); WHITE BLOOD COUNT 6.8 10^3/ul (4.5-11.0)
[2017-03-25 06:32] VITALS: PULSE 66; RESP 18; TEMP 98.6; O2SAT 95
[2017-03-25 11:59] VITALS: BP 137/73
--- NOTE | 2017-03-25 13:21 | PN ---
DATE: 03/25/2017 SUBJECTIVE: The patient is chest pain free, ambulating post PTCA, blood pressure is 136/70, heart rate is in the 60s. OBJECTIVE: NECK: Negative JVD. LUNGS: Without rales. HEART: S1, S2. EXTREMITIES: Without edema. LABORATORY DATA: Hemoglobin is 12.7, creatinine is 0.8. IMPRESSION: 1. Unstable angina. 2. History of coronary bypass surgery. 3. Successful PTCA and stent of saphenous vein graft lesion to the RCA. 4. COPD. 5. Hypercholesterolemia. PLAN: Given these findings, the patient is stable for discharge. I have discussed the need for Plavix as well as a cardiac risk reduction program with the patient in detail. I have discussed with him about that the need to stop smoking. We will bring the patient back in 1 week for an attempted PTCA of a chronically occluded circumflex artery. Martín Connolly MD
--- NOTE | 2017-03-26 06:28 | DS ---
He did very well last night. He is status post stent placement with Dr. Connolly. Prescriptions were given to him by Dr. Connolly. PHYSICAL EXAMINATION: VITAL SIGNS: He has a 98.6 temp, 66 pulse, 136/69 blood pressure, 18 respiratory rate and 95% sat on room air. HEENT: Head is atraumatic and normocephalic. HEART: Regular rate. LUNGS: Clear to auscultation. ABDOMEN: Soft. EXTREMITIES: No edema. MEDICATIONS: He is going home on his Ecotrin, Lipitor, Plavix and Renagel. LABORATORY DATA: He had 6.8 white count, 12.7 hemoglobin, 38.4 hematocrit with 245 platelets. He had 139 sodium, potassium of 4, BUN is 30, creatinine 0.8, GFR is greater than 60, sugar 111, calcium is 9.2. Total bili is 0.5, AST is 36, ALT is 51, alk phos 67. Total protein 6.7. He will be followed by Dr. Connolly next week, next Monday, for another catheterization. Hopefully, he will do very well this week. He will call me if any issues. The patient had severe CAD with stent placement. He was here for syncope and dizziness. Ezra Vasquez DO
== END 2017-03-25 12:15 | disposition home or self-care (01) | DRG 247 ==
LOC: ED 16:28 → ERH 18:58 → 3RNO 21:57 → 3RSO 22:04 → 2RSO 03-24 09:04
PROVIDERS: ADMIT Family Medicine; ATTEND Family Medicine
PROC: 027034Z Dilation of Coronary Artery, One Artery with Drug-eluting Intraluminal Device, Percutaneous Approach (ICD-10-PCS; principal; 2017-03-24)
PROC: 4A023N7 Measurement of Cardiac Sampling and Pressure, Left Heart, Percutaneous Approach (ICD-10-PCS; 2017-03-24)
PROC: B2151ZZ Fluoroscopy of Left Heart using Low Osmolar Contrast (ICD-10-PCS; 2017-03-24)
PROC: B2131ZZ Fluoroscopy of Multiple Coronary Artery Bypass Grafts using Low Osmolar Contrast (ICD-10-PCS; 2017-03-24)
DX: I25.110 Atherosclerotic heart disease of native coronary artery with unstable angina pectoris (principal); I42.0 Dilated cardiomyopathy; T82.857A Stenosis of other cardiac prosthetic devices, implants and grafts, initial encounter; I25.82 Chronic total occlusion of coronary artery; J44.9 Chronic obstructive pulmonary disease, unspecified; E78.00 Pure hypercholesterolemia, unspecified; F17.210 Nicotine dependence, cigarettes, uncomplicated; I10 Essential (primary) hypertension; Z95.5 Presence of coronary angioplasty implant and graft; E78.5 Hyperlipidemia, unspecified; F10.10 Alcohol abuse, uncomplicated; I25.2 Old myocardial infarction; Y83.2 Surgical operation with anastomosis, bypass or graft as the cause of abnormal reaction of the patient, or of later complication, without mention of misadventure at the time of the procedure; Z79.82 Long term (current) use of aspirin

== ENCOUNTER 2017-03-31 06:16 | Day surgery (SDC) | payer MEDICARE, OTHER ==
[2017-03-29 11:10] VITALS: BMI 29.9
[2017-03-31 07:15] LABS: BASO # 0.04 K/mm3 (0.0-2.0); BASO % 0.6 % (0.0-3.0); EOS # 0.3 (0.0-0.7); GRAN # 3.4 (1.4-6.5); GRAN % 48.9 % (50.0-68.0); HEMATOCRIT 34.9 % (42.0-52.0); LYMPH # 2.5 (1.2-3.4); LYMPH % 36.1 % (22.0-35.0); MEAN CELL VOLUME 89.7 fl (80.0-105.0); MEAN CORPUSCULAR HEMOGLOBIN 29.6 pg (25.0-35.0); MEAN PLATELET VOLUME 9.2 fl (7.0-11.0); MONO # 0.7 (0.1-0.6); MONO % 10.4 % (1.0-6.0); RED CELL DISTRIBUTION WIDTH 14.4 % (11.5-14.5)
[2017-03-31 07:22] LABS: INR 1.07 (0.93-1.08); PARTIAL THROMBOPLASTIN TIME 29.9 Seconds (23.7-30.8)
[2017-03-31 07:31] LABS: BLOOD UREA NITROGEN 17 mg/dL (7-21); CARBON DIOXIDE 25 mmol/L (21-33); CHLORIDE 105 mmol/L (98-107); CHOLESTEROL 200 mg/dL (130-200); GFR AFRICAN-AMERICAN > 60; GLUCOSE,RANDOM 106 mg/dL (70-110); POTASSIUM 3.9 mmol/L (3.6-5.0); SODIUM 141 mmol/L (132-148)
[2017-03-31] MEDS ORDERED: Lidocaine 2% Inj (20ml) ONE (08:22)
[2017-03-31] MEDS ORDERED: Iodixanol 320 MG/ML 200 ML BOTTLE IV ONE (08:23)
[2017-03-31] MEDS ORDERED: Iohexol 350mgl/ml 50 ML ONE (08:23)
[2017-03-31] MEDS ORDERED: Midazolam 2 MG/2 ML VIAL ONE ×2 (08:23→08:46)
[2017-03-31] MEDS ORDERED: Sodium Chloride 0.9% 1,000 ML IV SCH (09:45)
--- NOTE | 2017-03-31 13:31 | CARDCATH ---
PROCEDURE DATE: 03/31/2017 HISTORY: The patient is a 66-year-old male with severe COPD, peripheral vascular disease, history of coronary artery bypass surgery, who presents with unstable angina. The patient underwent successful PTCA and stent of proximal saphenous vein graft to the RCA last week and he comes back for attempted PTCA of a chronically occluded circumflex artery. PROCEDURE: Left heart catheterization with coronary arteriography, saphenous vein graft angiogram, followed by PTCA of a chronically occluded circumflex artery. The left femoral artery was cannulated with a 6-Guinean sheath. There were no complications. The findings on catheterization revealed a patent stent in the proximal portion of the saphenous vein graft to the RCA with no residual stenosis and HAJA III flow. The left main artery revealed diffuse atherosclerosis without critical lesions. The circumflex artery and its proximal portion revealed a long chronic occlusion with bridge collaterals as well as collaterals to the distal circumflex artery. The patient was started on intravenous Angiomax. A long sheath was placed in the left femoral artery. Multiple wires were used to cross the total occlusion including an ATW wire, a Cross-IT wire, a flow-through wire as well as Confianza wire. A 2.0 balloon was utilized to dilate the chronically occluded lesion. After balloon deflation removal, a small aneurysmal dilatation was noted with a fall small false lumen created by the dilatation. After multiple attempts, the test was aborted. The patient tolerated the procedure well. Angio-Seal was used to close the femoral artery site. In summary, the procedure was able to cross and balloon the chronicle occlusion; however, full [id number] flow was not achieved. Coronary arteriography revealed a patent stent in the ostium of the saphenous vein graft to the RCA. Given these findings, the patient will need to continue on aspirin and Plavix and undergo a cardiac risk reduction program including cessation of smoking. Martín Connolly MD
--- NOTE | 2017-03-31 20:26 | CARD ---
APPROVED REPORT EKG Measurement Heart [id number] <Conclusion> Marked sinus bradycardia with 1st degree AV block Abnormal ECG
--- NOTE | 2017-03-31 20:38 | HP ---
HISTORY OF PRESENT ILLNESS: I saw him status post cardiac cath this morning with Dr. Connolly. This is a second cath in a week. He had a cath on 03/24/2017. He is a 66-year-old man who had chest pain and dizziness, blurred vision and ended up having a cardiac cath and stent placement a week ago, comes in for a second cardiac cath today for PTCA. I could not put a stent in, but they felt that they opened up the vessel a bit and now he is going to be watched overnight and hopefully discharged tomorrow. PAST MEDICAL HISTORY: Myocardial infarction, hypertension, and coronary artery bypass graft. He had open heart surgery and cardiac catheterization. FAMILY HISTORY: He has a past family history, his brother has cancer everywhere. He also has a history of cervical spinal stenosis, claudication, and cardiac arrest. SOCIAL HISTORY: He states he quit smoking cigarettes as of 03/24/2017 when he had the cath last week. He used to do drugs, cocaine, but no more and still drinks alcohol. ALLERGIES: NO KNOWN DRUG ALLERGIES AT THIS TIME. MEDICATIONS: He is on metoprolol, atorvastatin, Ecotrin, Plavix, and IV fluids at this time. REVIEW OF SYSTEMS: He has no acute vision changes. No blurred vision at this time. No sore throat. No chest pain. No shortness of breath. No abdominal pain. No leg pain. PHYSICAL EXAMINATION: GENERAL: He is resting comfortably on the gurney, status post cardiac cath. VITAL SIGNS: He has 98.4 temperature, 59 pulse, 18 respiratory rate, and 99% O2 sat on room air. HEENT: Head is atraumatic and normocephalic. He is a little bit sedated, status post cardiac cath, but nontoxic. NECK: Supple. HEART: Regular rate. Normal S1 and S2. LUNGS: Decreased breath sounds, but clear to auscultation. ABDOMEN: Soft and nontender. Positive bowel sounds. EXTREMITIES: No edema at this time. NEUROLOGIC: He is alert and he is comfortable. Cranial nerves II through XII grossly intact. He is to lay down flat for 6 hours, status post cath. LABORATORY DATA: He has 141 sodium, potassium 3.9, BUN 17, creatinine 0.9, GFR is greater than 62, sugar is 106, calcium is 9.3, triglycerides 79, cholesterol 200, LDL is 139, and HDL is 36. White count is 7, hemoglobin 11.5, hematocrit 34.9, platelets of 235, and INR is 1.17. IMPRESSION AND PLAN: He had a consult with Dr. Connolly. He will be watched overnight. He is here for percutaneous transluminal coronary angioplasty for coronary artery disease. He has high cholesterol, hypertension, and a myocardial infraction history. Ezra Vasquez DO
--- NOTE | 2017-03-31 20:56 | CARD ---
APPROVED REPORT EKG Measurement Heart [id number] <Conclusion> Marked sinus bradycardia Abnormal ECG
[2017-04-01 06:36] VITALS: TEMP 98
[2017-04-01 07:56] LABS: BASO # 0.04 K/mm3 (0.0-2.0); BASO % 0.6 % (0.0-3.0); EOS # 0.2 (0.0-0.7); EOS % 3.4 % (1.5-5.0); GRAN # 3.39 (1.4-6.5); GRAN % 54.7 % (50.0-68.0); HEMATOCRIT 36.2 % (42.0-52.0); LYMPH # 1.9 (1.2-3.4); LYMPH % 31.2 % (22.0-35.0); MEAN CELL VOLUME 90.3 fl (80.0-105.0); MEAN CORPUSCULAR HEMOGLOBIN 29.4 pg (25.0-35.0); MEAN CORPUSCULAR HGB CONC 32.6 g/dl (31.0-37.0); MEAN PLATELET VOLUME 9.4 fl (7.0-11.0); MONO # 0.6 (0.1-0.6); MONO % 10.1 % (1.0-6.0); RED CELL DISTRIBUTION WIDTH 14.4 % (11.5-14.5); WHITE BLOOD COUNT 6.2 10^3/ul (4.5-11.0)
[2017-04-01 08:03] LABS: ALB/GLOB RATIO 1.4 (1.1-1.8); ALKALINE PHOSPHATASE 71 U/L (38-126); ALT/SGPT 47 U/L (7-56); AST/SGOT 38 U/L (17-59); BILIRUBIN,TOTAL 0.7 mg/dL (0.2-1.3); BLOOD UREA NITROGEN 14 mg/dL (7-21); CALCIUM 9.3 mg/dL (8.4-10.5); CARBON DIOXIDE 29 mmol/L (21-33); CHLORIDE 103 mmol/L (98-107); GFR AFRICAN-AMERICAN > 60; GLUCOSE,RANDOM 95 mg/dL (70-110); POTASSIUM 3.9 mmol/L (3.6-5.0); SODIUM 140 mmol/L (132-148); TOTAL PROTEIN 6.7 g/dL (5.8-8.3)
--- NOTE | 2017-04-01 10:06 | DS ---
HISTORY OF PRESENT ILLNESS: I saw him resting comfortably in bed this morning. He slept well. He is status post cardiac cath with Dr. Connolly. He is in good spirits and he go home today. PHYSICAL EXAMINATION: GENERAL: He has no complains. He is feeling well. No chest pain or shortness of breath. No abdominal pain. VITAL SIGNS: He has a 98 temperature, 63 pulse, 127/70 blood pressure, 20 respiratory rate, 90% saturation on room air. HEENT: Head is atraumatic and normocephalic. Throat is moist. NECK: Supple. HEART: Regular rate. LUNGS: Clear to auscultation. ABDOMEN: Soft. EXTREMITIES: No edema. MEDICATIONS: He will go home on his Ecotrin, Lipitor, Plavix. He has the medication ready at home. LABORATORY DATA: He has 6.2 white count, 11.8 hemoglobin, 36.2 hematocrit with 234 platelets. He has a 140 sodium, potassium 3.9, BUN of 40, creatinine 0.9, GFR is greater than 62, sugar is 95, calcium is 9.3, total bilirubin is 0.7. AST is 38, ALT is 47, alkaline phosphatase 71, total protein 6.7. Triglyceride is 79. ASSESSMENT AND PLAN: He did very well status post cath. He has stenting also last week. He has coronary artery disease, high cholesterol, chronic obstructive pulmonary disease, peripheral vascular disease, and unstable angina. He will be followup on the outpatient. Ezra Vasquez DO
[2017-04-01 10:24] VITALS: BP 118/64; PULSE 48; RESP 18; O2SAT 99
--- NOTE | 2017-04-01 19:23 | CARD ---
APPROVED REPORT EKG Measurement Heart [id number] <Conclusion> Normal sinus rhythm with sinus arrhythmia Possible Inferior infarct, age undetermined Abnormal ECG
== END 2017-04-01 10:49 | disposition home or self-care (01) ==
LOC: CATH 06:16 → 2RSO 10:00 → CATH 04-01 10:49
PROVIDERS: ATTEND Internal Medicine Cardiovascular Disease
DX: I25.110 Atherosclerotic heart disease of native coronary artery with unstable angina pectoris (principal); I25.2 Old myocardial infarction; I10 Essential (primary) hypertension; Z95.1 Presence of aortocoronary bypass graft; Z95.5 Presence of coronary angioplasty implant and graft; Z87.891 Personal history of nicotine dependence; Z79.82 Long term (current) use of aspirin; J44.9 Chronic obstructive pulmonary disease, unspecified; I44.0 Atrioventricular block, first degree; I73.9 Peripheral vascular disease, unspecified; E78.00 Pure hypercholesterolemia, unspecified; I25.82 Chronic total occlusion of coronary artery
CPT/HCPCS: 36415 ×2; 80048; 80053; 80061; 85025 ×2; 85610; 85730; 86850; 86900; 93005 ×2; 93455; 99152; C1760; C1769 ×5; C1887; C2629; C9600; J0583; J1644; J2250; J3010; J7030; J7040; Q9967